=== PATIENT | female | born 1960 | race Two or more races ===

== ENCOUNTER 2016-12-03 15:13 | Emergency (ER) | payer OTHER ==
[~2016-12-03] VITALS: Wt 73.0 kg
[~2016-12-03 15:13] MED LIST: TRIA1CAP44 PO; UNK HTN MED
[2016-12-03] MEDS ORDERED: SSD1C20 TOP (16:01)
--- NOTE | 2016-12-03 18:15 | ERD ---
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 She has pain. She has no fevers. She tried "cream" but she does not know what it was. She had one previous visit to the ER in the past upon review of old medical records. She does not know the name of her primary doctor. ROS All systems reviewed and are negative except as per history of present illness. Medications Home Meds Active Scripts Silver Sulfadiazine (THERMAZENE 1% 25 GM) 1 Applic Cr, 1 APPLIC TOP BID, #1 TUB Prov:RICHAR ANGELO MD 12/03/16 Reported Medications Triamterene-HCTZ (Triamterene-HCTZ) 1 Cap Capsule, 1 CAP PO DAILY 07/16/11 [Unk Htn Med] No Conflict Check 07/15/11 Allergies Allergies: Coded Allergies: No Known Allergy (Unverified , 07/17/11) PMhx/Soc Medical and Surgical Hx: pt denies Surgical Hx History of Surgery: No Anesthesia Reaction: No Hx Neurological Disorder: No Hx Respiratory Disorders: No Hx Cardiac Disorders: Yes (htn,) Hx Psychiatric Problems: No Hx Miscellaneous Medical Probl: Yes (high cholesterol) Hx Alcohol Use: No Hx Substance Use: No Hx Tobacco Use: No Smoking Status: Never smoker FmHx Family History: diabetes Physical Exam Vitals Vital Signs Date Time Temp Pulse Resp B/P Pulse Ox O2 Delivery O2 Flow Rate FiO2 12/03/16 15:32 98.9 84 20 169/77 97 Physical Exam Const: No acute distress Head: Atraumatic Eyes: Normal Conjunctiva ENT: Normal External Ears, Nose and Mouth. Neck: Full range of motion..~ No meningismus. Resp: Clear to auscultation bilaterally Cardio: Regular rate and rhythm, no murmurs Abd: Soft, non tender, non distended. Normal bowel sounds Skin: 4 x 4 centimeter second-degree burn to the right elbow without signs of secondary infection Back: No midline or flank tenderness Ext: No cyanosis, or edema Neur: Awake and alert Psych: Normal Mood and Affect Procedures/MDM Patient is a an 56-year-old female with hypertension and high cholesterol who presents with a burn to her right elbow. The patient will be given a prescription for Silvadene cream. There is no obvious sign of infection at this time. It appears there was a blister that has burst at this time already on its own. The patient can return for any worsening symptoms. There is no circumferential burn. She can follow-up with the [place] [facility] within 24-48 hours for reevaluation. Departure Diagnosis: Primary Impression: Burn injury Condition: Fair Patient Instructions: Burn, Second Degree Referrals: [facility] Additional Instructions: Specialist:Usted tiene ricky condicin mdica que requiere que henrik a un especialista dentro de los prximos 1-2 jarrell.POR FAVOR,CON LE SEGUIMIENTO DE PRIMARIA PHSICIAN refferal. SI USTED NO TIENE UN MDICO GENERAL Y / O USTED NO PUEDE PAGAR nataly a un mdico,los siguientes tabares RECURSOS sido suministrado a usted. ES LE RESPONSABILIDAD PARA SER VISTOS POR EL ESPECIALISTA: RICHAR ANGELO MD Dec 03, 2016 18:15
== END 2016-12-03 16:24 | disposition home or self-care (01) ==
LOC: FTE 15:13
DX: T22.221A Burn of second degree of right elbow, initial encounter (principal); I10 Essential (primary) hypertension; X15.8XXA Contact with other hot household appliances, initial encounter; Y92.69 Other specified industrial and construction area as the place of occurrence of the external cause
CPT/HCPCS: 99283

== ENCOUNTER 2017-01-13 15:03 | Emergency (ER) | payer OTHER ==
[~2017-01-13] VITALS: Ht 165.1 cm; Wt 70.0 kg
[~2017-01-13 15:03] MED LIST changes: +SSD1C20 TOP
[2017-01-13 15:07] VITALS: Ht 165.1 cm; Wt 70.0 kg
[2017-01-13] MEDS ORDERED: DIPHENHYDRAMINE 50 MG INJ IV STA (17:17)
[2017-01-13] MEDS ORDERED: METOCLOPRAMIDE 10 MG INJ IV STA (17:17)
[2017-01-13] MEDS ORDERED: SOD CHLORIDE 0.9% 1,000 ML IV STA (17:17)
[2017-01-13] MEDS ORDERED: DEXAMETHASONE 10 MG/ML 1 ML INJ IV ONE (17:30)
[2017-01-13 17:41] LABS: BASOPHILS % 0.2 % (0.0-2.0); EOSINOPHILS # 0.1 10^3/ul (0.0-0.5); EOSINOPHILS % 0.8 % (0.0-7.0); HEMATOCRIT 43.1 % (37.0-47.0); HEMOGLOBIN 14.5 g/dl (12.0-16.0); LYMPHOCYTES # 1.8 10^3/ul (0.8-2.9); LYMPHOCYTES % 19.8 % (15.0-51.0); MEAN CORPUSCULAR HEMOGLOBIN 28.9 pg (29.0-33.0); MEAN CORPUSCULAR HGB CONC 33.6 g/dl (32.0-37.0); MEAN CORPUSCULAR VOLUME 85.9 fl (82.0-101.0); MEAN PLATELET VOLUME 10.2 fl (7.4-10.4); MONOCYTE # 0.6 10^3/ul (0.3-0.9); MONOCYTES % 6.6 % (0.0-11.0); NEUTROPHIL # 6.4 10^3/ul (1.6-7.5); NEUTROPHILS % 72.3 % (39.0-77.0); PLATELET COUNT 331 10^3/UL (140-415); RED BLOOD COUNT 5.02 10^6/ul (4.20-5.40); WHITE BLOOD COUNT 8.9 10^3/ul (4.8-10.8)
[2017-01-13 17:55] LABS: INR 0.96; PROTIME 12.8 Sec (12.2-14.2)
[2017-01-13 17:56] LABS: PARTIAL THROMBOPLASTIN TIME 28.4 Sec (25.0-35.0)
--- NOTE | 2017-01-13 17:56 | RADRPT ---
PROCEDURE: CT brain without contrast CLINICAL INDICATION: Headache TECHNIQUE: CT of the brain without contrast performed on a multidetector CT scanner, with multiplan ar reformats. One or more of the following dose reduction techniques were used: Automated exposure control, adjustment in mA and / or kV according to patient size, use of iterative reconstructive darryl hnique. CTDIvol = 45 mGy; DLP = 630 mGy-cm. COMPARISON: None available FINDINGS: No acute intracranial hemorrhage is identified. No extra-axial fluid collection is seen. There is no mass effect. No midline shift is identified. The ventricles and sulci are mildly enlarged compatible with volume loss. There are mild areas of hypodensity in the periventricular - deep white matter which are nonspecific but suggestive of chronic small vessel ischemic changes. Mcpherson-white differentiation is preserved. Atherosclerotic calcifications of the intracranial internal carotid arteries are noted. Osseous structures are unremarkable. Mastoid air cells and imaged paranasal sinuses grossly clear. IMPRESSION: 1. No evidence of acute intracranial pathology. 2. Mild volume loss, with mild chronic small vessel ischemic changes. RPTAT: VV .Matt Duckworth MD, MD Date Time Electronically viewed and signed by .Matt Duckworth MD, on 01/13/2017 17:56 .O/
[2017-01-13 17:59] LABS: CALCIUM 9.7 mg/dl (8.4-10.2); CREATININE 0.58 mg/dl (0.44-1.00)
--- NOTE | 2017-01-13 18:07 | ERD ---
ER Documentation Chief Complaint Date/Time DATE: 01/13/17 TIME: 18:05 Chief Complaint HEADACHE AND DIZZINESS HPI This is a 56-year-old female who presents to the emergency room for evaluation of a headache. The patient states that she has had an headache which she describes as a throbbing headache located in the front portion of her head not associated with fever or any trauma for approximately 3 days. She states that she periodically gets headaches and this does feel similar to previous headaches. She denies any neck pain associated with this. She denies any blurred vision and denies any aggravating or relieving factors. She came to the emergency room for evaluation ,she denies any radiation of the pain ROS All systems reviewed and are negative except as per history of present illness. Medications Home Meds Active Scripts Silver Sulfadiazine (THERMAZENE 1% 25 GM) 1 Applic Cr, 1 APPLIC TOP BID, #1 TUB Prov:RICHAR ANGELO MD 12/03/16 Reported Medications Triamterene-HCTZ (Triamterene-HCTZ) 1 Cap Capsule, 1 CAP PO DAILY 07/16/11 [Unk Htn Med] No Conflict Check 07/15/11 Allergies Allergies: Coded Allergies: No Known Allergy (Unverified , 07/17/11) PMhx/Soc History of Surgery: No Anesthesia Reaction: No Hx Neurological Disorder: No Hx Respiratory Disorders: No Hx Cardiac Disorders: Yes (htn,) Hx Psychiatric Problems: No Hx Miscellaneous Medical Probl: Yes (high cholesterol) Hx Alcohol Use: No Hx Substance Use: No Hx Tobacco Use: No Physical Exam Vitals Vital Signs Date Time Temp Pulse Resp B/P Pulse Ox O2 Delivery O2 Flow Rate FiO2 01/13/17 15:07 98.2 75 18 136/74 98 Physical Exam INITIAL VITAL SIGNS: Reviewed by me GENERAL: The patient is well developed and appropriate for usual state of health in no apparent distress HEENT: Pupils equal, round, and reactive to light. EOMI. There is no scleral icterus. NECK: C-spine is soft and supple, there is no meningismus. There is no cervical lymphadenopathy. LUNGS: Clear to auscultation bilaterally. There are no rales, wheezes or rhonchi. HEART: Regular rate and rhythm, no murmurs, clicks, rubs or gallops. ABDOMEN: Soft, non-tender, non-distended. There are bowel sounds in all four quadrants. No rebound or guarding. EXTREMITIES: There is no peripheral cyanosis or edema. No focal swelling or erythema. NEUROLOGICAL: The patient moves all four extremities with 5/5 strength. Cranial nerves II - XII are intact. Normal gait. Alert and oriented SKIN: There is no apparent rash or petechiae. HEME/LYMPHATIC: There is no evidence of excessive bruising or lymphedema. PSYCHIATRIC: The patient does not appear anxious or depressed. Result Diagram: 01/13/17172901/13/171729 Results 24 hrs Laboratory Tests Test 01/13/17 17:30 White Blood Count 8.910^3/ul Red Blood Count 5.0210^6/ul Hemoglobin 14.5g/dl Hematocrit 43.1% Mean Corpuscular Volume 85.9fl Mean Corpuscular Hemoglobin 28.9pg Mean Corpuscular Hemoglobin Concent 33.6g/dl Red Cell Distribution Width 13.0% Platelet Count 75728^3/UL Mean Platelet Volume 10.2fl Neutrophils % 72.3% Lymphocytes % 19.8% Monocytes % 6.6% Eosinophils % 0.8% Basophils % 0.2% Nucleated Red Blood Cells % 0.0/100WBC Neutrophils # 6.410^3/ul Lymphocytes # 1.810^3/ul Monocytes # 0.610^3/ul Eosinophils # 0.110^3/ul Basophils # 0.010^3/ul Nucleated Red Blood Cells # 0.010^3/ul Prothrombin Time 12.8Sec Prothrombin Time Ratio 1.0 INR International Normalized Ratio 0.96 Activated Partial Thromboplast Time 28.4Sec Sodium Level 145mmol/L Potassium Level 4.0mmol/L Chloride Level 100mmol/L Carbon Dioxide Level 28mmol/L Anion Gap 21 Blood Urea Nitrogen 10mg/dl Creatinine 0.58mg/dl Glucose Level 113mg/dl Calcium Level 9.7mg/dl Current Medications Medications (Trade) Dose Ordered Sig/Sandra Route PRN Reason Start Time Stop Time Status Last Admin Dose Admin Sodium Chloride (NS) 1,000 ml @ 1,000 mls/hr Q1H STAT IV 01/13/17 17:17 01/13/17 18:16 01/13/17 17:34 Metoclopramide HCl (Reglan) 10 mg ONCE STAT IV 01/13/17 17:17 01/13/17 17:19 DC 01/13/17 17:34 Diphenhydramine HCl (Benadryl) 25 mg ONCE STAT IV 01/13/17 17:17 01/13/17 17:19 DC 01/13/17 17:34 Dexamethasone (Decadron) 10 mg ONCE ONCE IV 01/13/17 17:30 01/13/17 17:31 DC 01/13/17 17:34 Procedures/MDM CT brain without: 1. No evidence of acute intracranial pathology. 2. Mild volume loss, with mild chronic small vessel ischemic changes. EKG: Rate/Rhythm: [Normal Sinus Rhythm] QRS, ST, T-waves: [No changes consistent w/ acute ischemia] Impression: [No evidence of ischemia or arrhythmia] This 46-year-old female presents to the ER for evaluation of a headache. When I evaluated this patient she was neurologically intact with no focal neurological deficits. She had a negative Kernig sign, negative Babinski sign. She was afebrile, nontoxic-appearing, and hemodynamically stable. CT of the brain was obtained to rule out any intra-cranial hemorrhage. CT the brain was negative. The patient was given Reglan, Decadron, and Benadryl. Upon my reevaluation she does say she is feeling much better at this time. I do feel this patient is suffering from migraine headache. She will be discharged home with a prescription for Fioricet. Patient presents with a headache consistent with previous migraine headaches. Considered in the differential diagnosis includes SAH, meningitis, and intracranial concerns. However, the patient's presentation is not consistent with these more significant concerns. After symptomatic management, the patient is much improved, neurologically normal, and appropriate for outpatient management. Departure Diagnosis: Primary Impression: Cephalgia Additional Impression: Headache Condition: Stable CARSON EPPS DO Jan 13, 2017 18:07
[2017-01-13] MEDS ORDERED: FIORICET PO (18:08)
[2017-01-13 18:32] VITALS: BP 129/68; PULSE 77; RESP 20
== END 2017-01-13 18:32 | disposition home or self-care (01) ==
LOC: E/R 15:03
DX: R51 Headache (principal); R40.2252 Coma scale, best verbal response, oriented, at arrival to emergency department; I10 Essential (primary) hypertension; R07.9 Chest pain, unspecified; R40.2142 Coma scale, eyes open, spontaneous, at arrival to emergency department; R40.2362 Coma scale, best motor response, obeys commands, at arrival to emergency department
CPT/HCPCS: 36415; 70450; 80048; 85025; 85610; 85730; 93005; 96374; 96375; J1100; J1200; J2765; J7030; Z7502